=== PATIENT | female | born 1935 | race Caucasian/White ===

== ENCOUNTER 2016-12-27 01:29 | Inpatient (IN) | payer MEDICARE, OTHER ==
--- NOTE | ~2016-12-27 | CN ---
Consultation Report [facility] [address] [place]. [address] NAME: NASEEM CABRERA : 35 STATUS : ADM IN PAT#: [id number] AGE: 81 ADM/REG DATE : 12/27/16 MR#: [id number] REPORT SERV DATE: 12/27/16 DICTATED BY: TONY RUBIO DATE: 12/27/16 REPORT STATUS : Draft TRANSCRIBED BY: MODL DATE: 12/27/16 INPATIENT SPINE SURGERY CONSULTATION DATE OF CONSULTATION: 12/27/2016 REASON FOR CONSULTATION: Spinal stenosis. HISTORY OF PRESENT ILLNESS: The patient is a very pleasant 81-year-old female whom I saw and examined in her hospital room. She states that approximately three weeks ago, she started having rather severe right lower extremity pain and has subsequently resolved, and then approximately three days ago, started having severe left lower extremity pain, difficulty with ambulating, unable to bear weight on the left leg due to severe pain. She states that starts over in the left buttock area and troubles all the way down into the foot. Additionally, she also has a stress fracture, she says in her right foot. REVIEW OF SYSTEMS: She denies chest pain, shortness of breath, and bowel or bladder changes. ALLERGIES: INCLUDE BACTRIM. HOME MEDICATIONS: Include aspirin, Plavix, Acampo, isosorbide, Lopressor, K-Dur, Seroquel, Zantac, and Zanaflex. PAST MEDICAL HISTORY: Includes cardiac disease with history of stents, most recently stent placed in 03/2016, hypertension, history of back pain with two previous lumbar spine surgeries, the most recent one performed in [place]. FAMILY HISTORY: Noncontributory. PHYSICAL EXAMINATION: GENERAL: The patient is healthy appearing. She is in no acute distress as long as she is lying comfortably in bed. PSYCHIATRIC: She is alert and oriented x3. Normal mood and affect. Gait was not tested due to severe pain. VASCULAR: No extremity swelling. SPINE: Some diffuse tenderness over the lower lumbar region. NEUROLOGIC: Strength in the right lower extremity remains intact. No focal deficits on the left lower extremity. She had 4/5 strength for the hip flexors and quadriceps and hamstrings. Remaining strength was 5/5. Sensation is intact to light touch diffusely in the bilateral lower extremities. IMAGING: I have reviewed the CT scan performed of her lumbar spine. It does show rather severe L2 through L5 stenosis with nerve root compression. Consultation Report [place] [id number]. [address] NAME: NASEEM CABRERA : 35 STATUS : ADM IN PAT#: [id number] AGE: 81 ADM/REG DATE : 12/27/16 MR#: [id number] REPORT SERV DATE: 12/27/16 DICTATED BY: TONY RUBIO DATE: 12/27/16 REPORT STATUS : Draft TRANSCRIBED BY: JEREMIE DATE: 12/27/16 ASSESSMENT: Severe spinal stenosis. PLAN: I discussed with the patient that options would include physical therapy, medications, possible rehab placement, steroid injections, or surgery. Given the severity of her symptoms and severity of the CT findings, it is likely that eventually surgery will be necessary to relieve the pressure on the nerve to give her sufficient benefit. At this point, she is on multiple blood thinners due to her previous placement of stents. We are awaiting a cardiology consult to see if she could come off the blood thinners at this point or not. If so, then we could hold all blood thinners and potentially do surgery on Sunday when it would be safer after she has returned to blood to a more normal level. GRANT/JEREMIE Tony Rubio, DO / [id number] CC: MD [place] Sky ALLISON
--- NOTE | ~2016-12-27 | DS ---
Discharge Summary [place] [id number] [facility] [place]. [address] NAME: NASEEM CABRERA : 35 STATUS : DIS IN PAT#: [id number] AGE: 81 ADM/REG DATE : 12/27/16 MR#: [id number] REPORT SERV DATE: 01/02/17 DICTATED BY: DEA GALAN DATE: 01/01/17 REPORT STATUS : Draft TRANSCRIBED BY: MODL DATE: 01/01/17 ADMISSION DATE: 12/27/2016 DISCHARGE DATE: 01/01/2017 DISCHARGE DIAGNOSES: Include: 1. Severe spinal stenosis, status post an L2-L5 surgery performed by Dr. Rubio on 12/30/2016. 2. Hypokalemia, resolved. 3. Hypertension, stable. 4. History of coronary artery disease and prior coronary artery stenting. 5. Chronic kidney disease, stage II. 6. Anxiety and insomnia. DISCHARGE MEDICATIONS: Aspirin 81 mg daily, Prevalite packet one daily, Plavix 75 mg daily, Zantac 150 mg twice a day, Imdur 30 mg daily, Lopressor 12.5 mg p.o. twice a day, Klor-Con 20 mEq twice a day, Seroquel decreasing to 25 mg at bedtime, hydrocodone 5/325 one to two tablets every six hours p.r.n. for pain, and Lasix 20 mg daily p.r.n. for edema. HISTORY OF PRESENT ILLNESS: A very pleasant 81-year-old female with right-sided sciatica and weakness in her right leg who presented to the hospital. Please see initial H and P of Dr. Gabriel Craft. This patient is admitted to the Hospitalist Service for further evaluation and treatment. CONSULTANTS DURING THIS ADMISSION: Include Cardiology, Dr. Ramo Vasquez, and Orthopedic Spine Surgery, Dr. Tony Rubio. PROCEDURES AND IMAGING DURING THIS ADMISSION: Included initial CT of the lumbar spine that showed high-grade focal central spinal stenosis at L3-4 and L4-L5 and moderate central spinal stenosis at L2-L3. CONTINUATION IN HOSPITAL COURSE: I began seeing the patient on 12/27/2016 where the patient was doing well but was receiving some replacement for her low potassium and was on IV fluid for her slight renal insufficiency. Cardiology was set to evaluate the patient as well as Orthopedic Spine Surgery. It was determined that she would be able to stop her aspirin and Plavix by Cardiology to undergo the surgery by Dr. Rubio that is described above, and this was done on 12/30/2016 and she recovered well thereafter. Lab work has been stable. She has been afebrile. She was able to be seen and evaluated by Physical Therapy and mobilized affectively. She was felt safe for discharge home with [facility] on 01/01/2017 with the above medication regimen as described. Followup with Ortho Spine, Dr. Rubio, and followup with her primary care in approximately two to three weeks. She will have a rolling walker at discharge as well. I have updated the patient and patient's daughter at bedside. They are both in agreement with this plan going forward. I appreciate the help of the consultants both Cardiology and Ortho Spine on this case. DICTATED BY: Jorge Alberto Doss NP Discharge Summary [address] [address] NAME: NASEEM CABRERA : 35 STATUS : DIS IN PAT#: [id number] AGE: 81 ADM/REG DATE : 12/27/16 MR#: [id number] REPORT SERV DATE: 01/02/17 DICTATED BY: DEA GALAN DATE: 01/01/17 REPORT STATUS : Draft TRANSCRIBED BY: JEREMIE DATE: 01/01/17 DICTATED FOR: Dea Galan MD [facility]/JEREMIE Jorge Alberto Doss NP Dea Galan MD / [id number] CC: Dea Galan MD
--- NOTE | ~2016-12-27 | CN ---
Consultation Report [facility] [address] [place]. [address] NAME: NASEEM CABRERA : 35 STATUS : ADM IN PAT#: [id number] AGE: 81 ADM/REG DATE : 12/27/16 MR#: [id number] REPORT SERV DATE: 12/27/16 DICTATED BY: RAMO BUENO DATE: 12/27/16 REPORT STATUS : Draft TRANSCRIBED BY: MODL DATE: 12/27/16 CARDIOLOGY CONSULTATION DATE OF CONSULTATION: 12/27/2016 PRIMARY SHAMPOO TECHNICIAN: Dr. Teena Blair at [facility]. REASON FOR CONSULTATION: Preoperative risk assessment. HISTORY OF PRESENT ILLNESS: Ms. Cabrera is an 81-year-old female with known coronary artery disease, who has been admitted with severe symptomatic spinal stenosis. She has life style and activity limiting pain and difficulty ambulating due to progressive spinal stenosis. Only functional limitation at this time is due to back/leg pain and weakness. Her history of coronary artery disease is significant for drug-eluting stent to the LAD, circumflex, and RCA. More recently, she had RCA intervention with drug-eluting stent after an abnormal stress test and symptoms of angina in 02/2016 at [facility]. She did receive three separate drug-eluting stents, not overlapping. She has been on dual antiplatelet therapy since that time. She has had no recurrent angina. She denies shortness of breath. She has had no palpitations or syncope. She denies orthopnea or edema. Records from [facility] were reviewed and she had a 09/2016 echocardiogram with preserved EF and no regional wall motion abnormalities. REVIEW OF SYSTEMS: Pertinent positives and negatives are as outlined above, all others negative. PAST MEDICAL HISTORY: 1. CAD, status post multi-vessel PCI/GI. 2. Peripheral arterial disease with carotid and renal artery stenosis. 3. Hypertension. 4. Hyperlipidemia. 5. Chronic kidney disease, stage 2 to 3. 6. Hypokalemia. MEDICATIONS: Her current home medications are: 1. Metoprolol 12.5 mg twice daily. 2. Imdur 30 mg daily. 3. Plavix 75 mg daily. 4. Aspirin 81 mg daily. 5. Percocet p.r.n. 6. Potassium supplementation. 7. Seroquel 100 mg at bedtime. 8. Zantac 150 mg twice daily. 9. Zanaflex as directed. Consultation Report [place] [id number] [place]. [address] NAME: NASEEM CABRERA : 35 STATUS : ADM IN PAT#: [id number] AGE: 81 ADM/REG DATE : 12/27/16 MR#: [id number] REPORT SERV DATE: 12/27/16 DICTATED BY: RAMO BUENO DATE: 12/27/16 REPORT STATUS : Draft TRANSCRIBED BY: JEREMIE DATE: 12/27/16 ALLERGIES: INCLUDE ELISSA/ARB INTOLERANCE DUE TO CHRONIC KIDNEY DISEASE. ALLERGIC TO BACTRIM AND SULFA-CONTAINING ANTIBIOTICS. MORPHINE CAUSES ITCHING. CLINDAMYCIN HAS LEAD TO C DIFFICILE COLITIS. SOCIAL HISTORY: She does not actively use tobacco products, consume alcohol, or use illegal drugs. FAMILY HISTORY: Significant for CAD. PHYSICAL EXAMINATION: VITAL SIGNS: Temperature is 98.7, pulse 67, respirations 16, and blood pressure 118/43. MENTAL STATUS: Awake, alert, and oriented x3. PSYCH: Euthymic, normal affect. GENERAL: Well appearing and in no distress. HEENT: Sclerae anicteric, mucous membranes moist and without lesions. NECK: No jugular venous distention. No hepatojugular reflux, carotid upstrokes 2+ symmetric with faint bruit, there are no carotid or subclavian bruit. LUNGS: Mildly decreased breath sounds throughout. No wheezes or crackles. CARDIOVASCULAR: Regular with normal S1 and S2, no murmurs, no S3 or S4, no parasternal lift, PMI is nondisplaced and nonsustained. ABDOMEN: Soft and nontender. Bowel sounds positive and normoactive. No hepatomegaly, no masses, no abdominal bruit. PULSES: Radial and dorsalis pedis pulses 2+ and symmetric. EXTREMITIES: Warm and without edema. SKIN: No clubbing or cyanosis, no rashes or lesions. ACCESSORY DATA: ECG shows sinus bradycardia at a rate of 57 beats per minute with an old inferior infarct and no acute ST abnormalities. IMPRESSION: 1. Preoperative cardiovascular exam. 2. Coronary artery disease, status post multivessel GI. 3. Peripheral arterial disease. 4. Hypertension. 5. Hyperlipidemia. 6. Chronic kidney disease stage 2-3. 7. Hypokalemia. PLAN: Ms. Cabrera has been risk assessed and medically optimized for surgery. Her only limitation is related to her back pain and leg weakness from symptomatic spinal stenosis. She has had no angina since 02/2016 RCA intervention. She has no new EKG changes. Recent echocardiogram showed preserved EF. Since her last drug-eluting stent was 10 months ago, greater than 6 months ago, it is okay to proceed to surgery off Plavix for 3-5 days and resume postoperatively. Since her drug-eluting stent was less than 1 year ago, we would Consultation Report [address] [place]. [address] NAME: NASEEM CABRERA : 35 STATUS : ADM IN PAT#: [id number] AGE: 81 ADM/REG DATE : 12/27/16 MR#: [id number] REPORT SERV DATE: 12/27/16 DICTATED BY: RAMO BUENO. DATE: 12/27/16 REPORT STATUS : Draft TRANSCRIBED BY: JEREMIE DATE: 12/27/16 prefer that she stay on aspirin 81 mg if possible at the discretion of Spine Surgery. No further recommendations and no further cardiac testing recommended at this time. We will be available as needed. Please call with questions. DELMAR/JEREMIE Ramo Bueno M.D. / [id number] CC: MD [place] Sky ALLISON
--- NOTE | ~2016-12-27 | HP ---
History And Physical [place] [id number] [facility] [place]. [address] NAME: NASEEM CABRERA : 35 STATUS : ADM IN [facility]#: [id number] AGE: 81 ADM/REG DATE : 12/27/16 MR#: [id number] REPORT SERV DATE: 12/27/16 DICTATED BY: TERRENCE HOPE DATE: 12/27/16 REPORT STATUS : Draft TRANSCRIBED BY: MODL DATE: 12/27/16 DATE OF ADMISSION: 12/27/2016 CHIEF COMPLAINT: An 81-year-old female presenting with increasing right-sided sciatica and now weakness in her right leg. HISTORY OF PRESENT ILLNESS: The patient's history was obtained through an interview with the patient, coupled with review of [facility] medical records. The patient has had two previous back surgeries for a similar presentation apparently, but it was just over the last three weeks, the patient has had increasing right sciatica but then yesterday it became so debilitating and associated with weakness in her right leg that she knew she had to come to the hospital. She describes right hip pain that radiates down the leg. No particular pain in her lower back itself, sharp quality pain, 10/10 severity. Today, she could not walk at all because of the pain, and the pain is exacerbated by any kind of weightbearing or movement. She has had occasional nausea and vomiting. No chest pain. No shortness of breath. No cough. No fevers or chills. No diarrhea. REVIEW OF SYSTEMS: Otherwise, a 14-point review of systems was obtained and was negative. PAST MEDICAL HISTORY: 1. Coronary artery disease with history of three or four stents placed at [facility]. The first in 2012 but then apparently one more stent placed in March 2016. These apparently were drug-eluting stents I believe because patient stated that she had to be on Plavix for 12 months. 2. Chronic kidney disease, stage III. Baseline creatinine of 1.2 to 1.5. 3. Orthostatic hypotension. 4. Anxiety. 5. Pneumonia. 6. Urinary tract infection. 7. C. difficile colitis. 8. Transient ischemic attack with carotid disease. 9. Gastroesophageal reflux disease. 10.Iron deficiency anemia. PAST SURGICAL HISTORY: 1. Back surgery x2. 2. Karthik fundoplication. 3. Hysterectomy with oophorectomy. 4. Right leg surgery. 5. Right carpal tunnel. History And Physical [facility] [address] [place]. [address] NAME: NASEEM CABRERA : 35 STATUS : ADM IN PAT#: [id number] AGE: 81 ADM/REG DATE : 12/27/16 MR#: [id number] REPORT SERV DATE: 12/27/16 DICTATED BY: TERRENCE HOPE DATE: 12/27/16 REPORT STATUS : Draft TRANSCRIBED BY: JEREMIE DATE: 12/27/16 6. Benign mouth tumor resection. 7. Esophageal tear surgery with a "pouch.". ALLERGIES: KEFLEX, CLINDAMYCIN, MORPHINE. SOCIAL HISTORY: No tobacco abuse. No alcohol abuse. Has been a since 1999. Lives in [place], [place]. Lives alone, has two daughters. She is "part " in ethnicity. She has grandchildren. FAMILY HISTORY: Mother at 90 years of age, suffered a stroke. Father with leukemia and in his 50s. CURRENT MEDICATIONS: Include aspirin 81 mg p.o. daily, Plavix 75 mg p.o. daily, hydrocodone, isosorbide mononitrate 30 mg p.o. daily, Lopressor 12.5 mg p.o. b.i.d., potassium 20 mEq p.o. b.i.d., Seroquel 100 mg at bedtime, ranitidine 150 mg p.o. b.i.d., and Zanaflex 4 mg p.o. t.i.d. PHYSICAL EXAMINATION: VITAL SIGNS: Temperature 98.7, pulse 67, blood pressure 118/ , respiratory rate 18, O2 saturation 96% on room air. GENERAL: A pleasant, cooperative female, no evidence of acute distress. HEENT: Pupils equal, round, and reactive to light. No conjunctival pallor. No scleral icterus. Nares are patent. Oropharynx is clear of obstruction. Moist mucous membranes. NECK: Trachea midline. No thyromegaly. LYMPH: No cervical lymphadenopathy. No supraclavicular lymphadenopathy. RESPIRATORY: Clear to auscultation at bases. No wheezes, rales, or rhonchi. Normal respiratory effort. CARDIOVASCULAR: Regular rate and rhythm. No murmurs, rubs, or gallops. No extremity edema is appreciated. ABDOMEN: Soft, nontender, nondistended. Normal bowel sounds auscultated throughout. No hepatosplenomegaly. DERMATOLOGICAL: Warm and dry extremities. No pallor. No cyanosis. NEUROLOGICAL: The patient does have 5/5 strength in her bilateral lower extremities with 2+ deep tendon reflexes that are symmetrical. PSYCHIATRIC: Normal affect. Good mood. Alert and oriented x3. LABORATORY DATA: White blood cell count 11.4, hemoglobin 11, hematocrit 34, platelets 177. Sodium 141, potassium 2.8, chloride 104, bicarb 26, BUN 36, creatinine 1.35, glucose 118, albumin 2.9, lactic acid 0.7. Liver enzymes within normal limits. STUDIES: 1. Chest x-ray by my own evaluation shows no acute cardiopulmonary process. 2. CT scan of the lumbosacral spine shows severe spinal stenosis L3-L4 and L4-L5. ASSESSMENT AND PLAN: 1. Severe spinal stenosis with radiculopathy, sciatica, and right leg weakness. The case was discussed with the emergency department with Dr. Rubio and is being evaluated for History And Physical [address] [address] NAME: NASEEM CABRERA : 35 STATUS : ADM IN [facility]#: [id number] AGE: 81 ADM/REG DATE : 12/27/16 MR#: [id number] REPORT SERV DATE: 12/27/16 DICTATED BY: TERRENCE HOPE DATE: 12/27/16 REPORT STATUS : Draft TRANSCRIBED BY: MODL DATE: 12/27/16 possible surgery on December 28. 2. Coronary artery disease with history of drug-eluting stent in March 2016. We will request medical records from [facility] and consult Cardiology to evaluate the safety of holding Plavix for surgery(?). 3. Hypokalemia, chronic condition with no obvious medication causing(?) Is this RTA(?) or adrenal disease(?). Check an 8 a.m. cortisol level. Check urinalysis to monitor urine pH(?). Replace potassium. Check magnesium. 4. Chronic kidney disease stage 3. KPL/MODL Terrence Hope M.D. / [id number] CC: MD Teena [place],
--- NOTE | ~2016-12-27 | OP ---
Record Of Operation [facility] [address] [place]. [address] NAME: NASEEM CABRERA : 35 STATUS : ADM IN PAT#: [id number] AGE: 81 ADM/REG DATE : 12/27/16 MR#: [id number] REPORT SERV DATE: 12/30/16 DICTATED BY: TONY DAVIS DATE: 12/30/16 REPORT STATUS : Draft TRANSCRIBED BY: MODNicolasa DATE: 12/30/16 DATE OF PROCEDURE: 12/30/2016 PREOPERATIVE DIAGNOSES: Lumbar spinal stenosis L2 through L5 with lumbar radiculopathy. Left leg weakness. POSTOPERATIVE DIAGNOSIS: Lumbar spinal stenosis L2 through L5 with lumbar radiculopathy. Left leg weakness. PROCEDURE: Left-sided minimal access spine technology, L2 through L5 laminectomy and bilateral foraminotomies, use of operative microscope, intraoperative O-arm CT scan with computer navigation and neuromonitoring. ANESTHESIA: General. ESTIMATED BLOOD LOSS: 20 mL. COMPLICATIONS: None. INDICATIONS: The patient is a pleasant 81-year-old female with intractable left leg pain and weakness; history of right leg pain that had resolved. After discussion of the risks and benefits and failing conservative treatment, the patient elected to proceed with surgery. PROCEDURE IN DETAIL: I identified the patient in the holding area. Consent was obtained. Went to the operating room. Underwent general anesthesia with endotracheal intubation. Prepped and draped in the usual sterile fashion. Operative safety pause was performed, then we proceeded with surgery. The O-arm registration frame was placed in the iliac crest. O- arm was brought in for intraoperative CT scan. Computer registration materials were verified. Under computer guidance, a left longitudinal incision was made from L2-L5, taken down through the fascial layer. Tube dilators were used to minimally invasively dissect down to the left L2-3 interspace. Operative microscope was brought in. A paula was used to perform a laminotomy and partial facetectomy. [place] performed a foraminotomy and removed the remaining lamina at the L2-L3 level and reached across to the contralateral right side and performed a laminoforaminotomy as well. L2-3 nerves were free of compression. This was repeated again at L3-4 and at L4-5. Irrigation performed. Hemostasis achieved. A gram of vancomycin powder sprinkled over the surgical wound. Layered closure performed. Sterile dressings applied. The patient awoke and extubated and taken to the recovery room in stable condition. OPERATIVE FINDINGS: Severe stenosis L2 through L5. No sustained neuromonitoring alerts. GRANT/JEREMIE Tony Moreland Record Of Operation [address] [address] NAME: NASEEM CABRERA : 35 STATUS : ADM IN PAT#: [id number] AGE: 81 ADM/REG DATE : 12/27/16 MR#: [id number] REPORT SERV DATE: 12/30/16 DICTATED BY: TONY DAVIS DATE: 12/30/16 REPORT STATUS : Draft TRANSCRIBED BY: JEREMIE DATE: 12/30/16 DO Joanne / [id number]
[2016-12-27 01:26] LABS: BASOPHILS 0.1 %; BASOPHILS ABSOLUTE 0.01 10/3/uL (0.0-0.16); EOSINOPHILS 0.3 %; EOSINOPHILS ABSOLUTE 0.03 10/3/uL (0.0-0.53); HEMOGLOBIN 11.5 g/dL (12.0-16.0); IMMATURE GRANULOCYTES 0.3 %; IMMATURE GRANULOCYTES ABSOLUTE 0.03 10/3/uL (0.0-0.11); LYMPHOCYTES 9.4 %; LYMPHOCYTES ABSOLUTE 1.07 10/3/uL (0.67-4.30); MEAN CORPUS HGB CONC 33.6 g/dL (32.0-36.0); MEAN PLATELET VOLUME 11.8 fL (9.2-13.0); MONOCYTES ABSOLUTE 1.59 10/3/uL (0.21-1.20); NEUTROPHILS 75.9 %; NEUTROPHILS ABSOLUTE 8.62 10/3/uL (2.02-8.40); PLATELET COUNT 177 10/3/uL (150-400); RBC DISTRIBUTION WIDTH 14.5 % (12.0-16.0); RED CELL COUNT 3.83 10/6/uL (4.0-5.6)
[2016-12-27 01:28] LABS: ER CBC TAT 0 Hrs 07 Mins; HEMATOCRIT 34.2 % (36.0-48.0); MANUAL DIFF NO %; MEAN CORPUSCULAR VOLUME 89.3 fL (80-100); WHITE BLOOD CELLS 11.4 10/3/uL (4.5-10.5)
[~2016-12-27 01:29] MED LIST: ASAB PO; ATEN25 PO; ATEN50 PO; CAT1 PO; CHLORTABS OR; COREG12 PO; CRESTOR10 PO; ESTRACE1 MG PO; GINKGO BILO1 PO; GINKGO BILO2 PO; HCTZ25B PO; HORMONE PO; HYDROCHLOROT25 MG PO; KDUR20 PO; KLONO1 PO; LIDAMANTLE3 % TOP; LUTEIN1 CAP OR; MAG OXIDE250 MG PO; MAGNESIUM PO; MAX25 PO; MCZ25 PO; MELA3 PO; MICROZIDE PO; NORCO1 TA1 PO; PLAVIX PO; SEROQUEL1C PO; SEROQUEL50 MG PO; STOOL SOFTEN100 MG PO; SUPER B W/C PO; TRAZ100 PO; TRAZODONE150 MG PO; VALTREX1 GM PO; VITAMIN B-122500 MCG SL; X25 PO; ZINC PO; ZYRTEC ALLGY10 MG PO; [UNRECOGNIZED DRUG - CODE] TOP
[2016-12-27 01:40] LABS: A/G RATIO 0.8 (0.7-1.9); ALKALINE PHOSPHATASE 84 U/L (45-117); BUN (BLOOD UREA NITROGEN) 36 MG/DL (6-23); CALCIUM, SERUM 9.2 MG/DL (8.5-10.4); CHLORIDE, SERUM 104 MMOL/L (96-112); CO2 (CARBON DIOXIDE) 26 MMOL/L (24-34); CREATININE 1.35 MG/DL (0.55-1.02); GFR AFRICAN AMERICAN 43 ML/MIN (>=60); GFR NON AFRICAN AMERICAN 37 ML/MIN (>=60); GLOBULIN 3.7 G/DL (2.5-4.1); SGOT(AST) 12 U/L (5-40); SGPT(ALT) 11 U/L (5-65); SODIUM, SERUM 141 MMOL/L (135-148); TOTAL BILIRUBIN 0.4 MG/DL (0-1.2); TOTAL PROTEIN 6.6 G/DL (6.0-8.5)
[2016-12-27 01:43] LABS: ALBUMIN 2.9 G/DL (3.5-5.0); GLUCOSE, SERUM 118 MG/DL (60-99); POTASSIUM, SERUM 2.8 MMOL/L (3.5-5.3)
[2016-12-27 01:43] LABS: LACTATE 0.7 MMOL/L (0.3-2.4)
[2016-12-27] MEDS ORDERED: SEROQUEL1C PO (03:02)
[2016-12-27] MEDS ORDERED: IMDUR30 PO ×2 (03:02→08:43)
[2016-12-27] MEDS ORDERED: PLAVIX PO ×2 (03:02→08:43)
[2016-12-27] MEDS ORDERED: LOP25 PO ×2 (03:02→08:44)
[2016-12-27] MEDS ORDERED: ZANAFLEX 4 MG TA4 MG PO (03:03)
[2016-12-27] MEDS ORDERED: ZANTAC 150 PO (03:03)
[2016-12-27] MEDS ORDERED: KDUR20 PO (03:03)
[2016-12-27] MEDS ORDERED: NORCO1 TA1 PO ×2 (03:03→08:43)
[2016-12-27] MEDS ORDERED: *UNABLE3 (03:04)
[2016-12-27] MEDS ORDERED: ASAB PO (03:05)
[2016-12-27 06:13] LABS: ASCORBIC ACID (UR NOT ORDER) NEG (NEG); BILIRUBIN, URINE NEGATIVE (NEG); ER URINALYSIS TAT 0 Hrs 21 Mins; KETONE, URINE NEGATIVE (NEG); LEUKOCYTE ESTERASE(NOT OR NEG (NEG); NITRITE (URINE) NEG (NEG); WBC (NOT ORDERED) (RFLEX) < 1 (0-5)
[2016-12-27] MEDS ORDERED: HALF81 PO (08:43)
[2016-12-27] MEDS ORDERED: KLOR-CON M2020 MEQ PO (08:44)
[2016-12-27] MEDS ORDERED: ZANTAC150 MG PO (08:45)
[2016-12-27] MEDS ORDERED: L20 PO (08:45)
[2016-12-27] MEDS ORDERED: SEROQUEL50 MG PO (08:45)
[2016-12-27] MEDS ORDERED: PREVALITE4 G1 PO (08:47)
[2016-12-27 09:33] LABS: INTERNATIONAL NORMAL RATI 1.2 UNITS (-); PROTIME (NOT ORD) 15.2 SEC (12.0-14.5)
[2016-12-27 09:34] LABS: PARTIAL THROMBO TIME 31.2 SEC (22.5-37.2)
[2016-12-27 09:51] LABS: TROPONIN I <0.02 NG/ML (<0.05)
[2016-12-27 09:54] LABS: POTASSIUM, SERUM 3.4 MMOL/L (3.5-5.3); ULTRASENSITIVE TSH 0.674 MCIU/ML (0.358-3.740)
[2016-12-28 05:33] LABS: BASOPHILS 0.1 %; BASOPHILS ABSOLUTE 0.01 10/3/uL (0.0-0.16); EOSINOPHILS 0.5 %; EOSINOPHILS ABSOLUTE 0.04 10/3/uL (0.0-0.53); HEMOGLOBIN 9.9 g/dL (12.0-16.0); IMMATURE GRANULOCYTES 0.1 %; IMMATURE GRANULOCYTES ABSOLUTE 0.01 10/3/uL (0.0-0.11); LYMPHOCYTES ABSOLUTE 0.95 10/3/uL (0.67-4.30); MEAN CORPUS HGB CONC 33.6 g/dL (32.0-36.0); MEAN CORPUSCULAR HEMOGLOB 30.2 pg (26.0-34.0); MEAN CORPUSCULAR VOLUME 89.9 fL (80-100); MEAN PLATELET VOLUME 12.2 fL (9.2-13.0); MONOCYTES 9.7 %; MONOCYTES ABSOLUTE 0.84 10/3/uL (0.21-1.20); NEUTROPHILS 78.6 %; NEUTROPHILS ABSOLUTE 6.79 10/3/uL (2.02-8.40); PLATELET COUNT 168 10/3/uL (150-400); RBC DISTRIBUTION WIDTH 14.8 % (12.0-16.0); RED CELL COUNT 3.28 10/6/uL (4.0-5.6); WHITE BLOOD CELLS 8.6 10/3/uL (4.5-10.5)
[2016-12-28 05:41] LABS: HEMATOCRIT 29.5 % (36.0-48.0); MANUAL DIFF NO %
[2016-12-28 05:48] LABS: CALCIUM, SERUM 9.1 MG/DL (8.5-10.4); CHLORIDE, SERUM 114 MMOL/L (96-112); CO2 (CARBON DIOXIDE) 24 MMOL/L (24-34); CREATININE 0.94 MG/DL (0.55-1.02); GFR AFRICAN AMERICAN 66 ML/MIN (>=60); GFR NON AFRICAN AMERICAN 57 ML/MIN (>=60); GLUCOSE, SERUM 104 MG/DL (60-99); SODIUM, SERUM 142 MMOL/L (135-148)
[2016-12-28 05:49] LABS: BUN (BLOOD UREA NITROGEN) 31 MG/DL (6-23)
[2016-12-30 04:34] LABS: BASOPHILS 0.3 %; BASOPHILS ABSOLUTE 0.02 10/3/uL (0.0-0.16); EOSINOPHILS 3.1 %; EOSINOPHILS ABSOLUTE 0.22 10/3/uL (0.0-0.53); HEMATOCRIT 30.4 % (36.0-48.0); HEMOGLOBIN 10.1 g/dL (12.0-16.0); IMMATURE GRANULOCYTES 0.3 %; IMMATURE GRANULOCYTES ABSOLUTE 0.02 10/3/uL (0.0-0.11); LYMPHOCYTES 18.2 %; LYMPHOCYTES ABSOLUTE 1.28 10/3/uL (0.67-4.30); MEAN CORPUS HGB CONC 33.2 g/dL (32.0-36.0); MEAN CORPUSCULAR VOLUME 90.2 fL (80-100); MEAN PLATELET VOLUME 11.9 fL (9.2-13.0); MONOCYTES 11.2 %; MONOCYTES ABSOLUTE 0.79 10/3/uL (0.21-1.20); NEUTROPHILS 66.9 %; NEUTROPHILS ABSOLUTE 4.72 10/3/uL (2.02-8.40); PLATELET COUNT 186 10/3/uL (150-400); RBC DISTRIBUTION WIDTH 14.8 % (12.0-16.0); RED CELL COUNT 3.37 10/6/uL (4.0-5.6); WHITE BLOOD CELLS 7.1 10/3/uL (4.5-10.5)
[2016-12-30 04:37] LABS: MANUAL DIFF NO %
[2016-12-30 04:54] LABS: BUN (BLOOD UREA NITROGEN) 33 MG/DL (6-23); CHLORIDE, SERUM 111 MMOL/L (96-112); CO2 (CARBON DIOXIDE) 23 MMOL/L (24-34); CREATININE 1.08 MG/DL (0.55-1.02); GFR AFRICAN AMERICAN 56 ML/MIN (>=60); GFR NON AFRICAN AMERICAN 48 ML/MIN (>=60); GLUCOSE, SERUM 93 MG/DL (60-99); POTASSIUM, SERUM 4.7 MMOL/L (3.5-5.3); SODIUM, SERUM 141 MMOL/L (135-148)
[2016-12-30 04:55] LABS: CALCIUM, SERUM 9.4 MG/DL (8.5-10.4)
[2016-12-30 12:29] LABS: BASOPHILS 0.2 %; BASOPHILS ABSOLUTE 0.02 10/3/uL (0.0-0.16); EOSINOPHILS 1.4 %; EOSINOPHILS ABSOLUTE 0.13 10/3/uL (0.0-0.53); HEMATOCRIT 31.2 % (36.0-48.0); HEMOGLOBIN 10.2 g/dL (12.0-16.0); IMMATURE GRANULOCYTES 0.3 %; IMMATURE GRANULOCYTES ABSOLUTE 0.03 10/3/uL (0.0-0.11); LYMPHOCYTES 15.4 %; LYMPHOCYTES ABSOLUTE 1.42 10/3/uL (0.67-4.30); MEAN CORPUS HGB CONC 32.7 g/dL (32.0-36.0); MEAN CORPUSCULAR HEMOGLOB 29.4 pg (26.0-34.0); MEAN CORPUSCULAR VOLUME 89.9 fL (80-100); MEAN PLATELET VOLUME 11.3 fL (9.2-13.0); MONOCYTES 5.3 %; MONOCYTES ABSOLUTE 0.49 10/3/uL (0.21-1.20); NEUTROPHILS 77.4 %; NEUTROPHILS ABSOLUTE 7.16 10/3/uL (2.02-8.40); PLATELET COUNT 189 10/3/uL (150-400); RBC DISTRIBUTION WIDTH 14.8 % (12.0-16.0); RED CELL COUNT 3.47 10/6/uL (4.0-5.6); WHITE BLOOD CELLS 9.3 10/3/uL (4.5-10.5)
[2016-12-30 12:30] LABS: MANUAL DIFF NO %
[2016-12-30 12:40] LABS: BUN (BLOOD UREA NITROGEN) 30 MG/DL (6-23); CALCIUM, SERUM 9.3 MG/DL (8.5-10.4); CHLORIDE, SERUM 111 MMOL/L (96-112); CO2 (CARBON DIOXIDE) 24 MMOL/L (24-34); CREATININE 0.78 MG/DL (0.55-1.02); GFR AFRICAN AMERICAN 83 ML/MIN (>=60); GFR NON AFRICAN AMERICAN 71 ML/MIN (>=60); GLUCOSE, SERUM 122 MG/DL (60-99); POTASSIUM, SERUM 4.5 MMOL/L (3.5-5.3); SODIUM, SERUM 140 MMOL/L (135-148)
[2016-12-31 04:37] LABS: BASOPHILS 0 %; EOSINOPHILS 0 %; HEMATOCRIT 29.5 % (36.0-48.0); HEMOGLOBIN 9.7 g/dL (12.0-16.0); IMMATURE GRANULOCYTES 0.2 %; IMMATURE GRANULOCYTES ABSOLUTE 0.02 10/3/uL (0.0-0.11); LYMPHOCYTES 8.3 %; LYMPHOCYTES ABSOLUTE 0.96 10/3/uL (0.67-4.30); MEAN CORPUS HGB CONC 32.9 g/dL (32.0-36.0); MEAN CORPUSCULAR HEMOGLOB 29.6 pg (26.0-34.0); MEAN CORPUSCULAR VOLUME 89.9 fL (80-100); MEAN PLATELET VOLUME 11.9 fL (9.2-13.0); MONOCYTES 9.1 %; MONOCYTES ABSOLUTE 1.05 10/3/uL (0.21-1.20); NEUTROPHILS 82.4 %; NEUTROPHILS ABSOLUTE 9.49 10/3/uL (2.02-8.40); PLATELET COUNT 193 10/3/uL (150-400); RBC DISTRIBUTION WIDTH 14.6 % (12.0-16.0); RED CELL COUNT 3.28 10/6/uL (4.0-5.6); WHITE BLOOD CELLS 11.5 10/3/uL (4.5-10.5)
[2016-12-31 04:38] LABS: MANUAL DIFF NO %
[2016-12-31 04:47] LABS: BUN (BLOOD UREA NITROGEN) 28 MG/DL (6-23); CHLORIDE, SERUM 108 MMOL/L (96-112); CO2 (CARBON DIOXIDE) 23 MMOL/L (24-34); CREATININE 0.92 MG/DL (0.55-1.02); GFR AFRICAN AMERICAN 68 ML/MIN (>=60); GFR NON AFRICAN AMERICAN 58 ML/MIN (>=60); GLUCOSE, SERUM 114 MG/DL (60-99); POTASSIUM, SERUM 4.5 MMOL/L (3.5-5.3); SODIUM, SERUM 140 MMOL/L (135-148)
== END 2017-01-01 14:51 | disposition home or self-care (01) | DRG 517 ==
LOC: ER 01:29 → 3SO 03:36
PROVIDERS: Hospitalist; Nurse Practitioner Family; Orthopaedic Surgery; Specialist
PROC: 8E0WXBZ Computer Assisted Procedure of Trunk Region (ICD-10-PCS; 2016-12-30)
PROC: 4A10X4G Monitoring of Central Nervous Electrical Activity, Intraoperative, External Approach (ICD-10-PCS; 2016-12-30)
PROC: 01NB0ZZ Release Lumbar Nerve, Open Approach (ICD-10-PCS; principal; 2016-12-30 09:00)
DX: M48.06 Spinal stenosis, lumbar region (principal); I73.9 Peripheral vascular disease, unspecified; N18.3 Chronic kidney disease, stage 3 (moderate); I12.9 Hypertensive chronic kidney disease with stage 1 through stage 4 chronic kidney disease, or unspecified chronic kidney disease; I25.10 Atherosclerotic heart disease of native coronary artery without angina pectoris; E87.6 Hypokalemia; E78.5 Hyperlipidemia, unspecified; K21.9 Gastro-esophageal reflux disease without esophagitis; F41.9 Anxiety disorder, unspecified; G47.00 Insomnia, unspecified; M54.16 Radiculopathy, lumbar region; Z95.5 Presence of coronary angioplasty implant and graft; Z86.73 Personal history of transient ischemic attack (TIA), and cerebral infarction without residual deficits; Z79.82 Long term (current) use of aspirin; Z79.01 Long term (current) use of anticoagulants; Z79.899 Other long term (current) drug therapy; Z88.2 Allergy status to sulfonamides; Z88.1 Allergy status to other antibiotic agents; Z88.5 Allergy status to narcotic agent; Z88.8 Allergy status to other drugs, medicaments and biological substances
CPT/HCPCS: 71010; 72131; 80048; 80053; 81001; 82533; 82962; 83605; 83735; 83880; 84132; 84443; 84484; 85025; 85610; 85730; 87040; 87641; 88304; 88311; 93005; 96374; 96375; 97116-GP; 97161-GP; 97164-GP; 99285; A9270-GY; G8978-CK-GP; G8979-CI-GP; J0360; J1040; J1885; J2250; J2405; J2710; J3010; J3370